=== PATIENT | female | born 1980 | race Caucasian/White ===

== ENCOUNTER 2017-07-14 08:40 | Emergency (ER) | payer SELFPAY ==
[2017-07-14] MEDS ORDERED: Haloperidol Lactate 5 mg/mL 1mL Vial IM STA (09:20)
[2017-07-14] MEDS ORDERED: Haloperidol Lactate 5 mg/mL 1mL Vial ONE (09:25)
[2017-07-14] MEDS ORDERED: Hydrocodone/APAP 10 mg/325 mg Tab PO STA (09:28)
[2017-07-14] MEDS ORDERED: Pantoprazole 40 mg EC Tab PO STA (09:34)
[2017-07-14] MEDS ORDERED: Hydrocodone/APAP 10 mg/325 mg Tab ONE (09:36)
[2017-07-14] MEDS ORDERED: Pantoprazole 40 mg EC Tab PO ONE (09:40)
[2017-07-14 09:52] LABS: % BASOPHILS 1.8 % (0.0-2.0); % EOSINOPHILS 5.2 % (0.0-5.0); % LYMPHOCYTES 29.4 % (20.0-50.0); % MONOCYTES 10.1 % (2.0-10.0); % NEUTROPHILS 53.5 % (40.0-80.0); BASOPHILE ABSOLUTE 0.1 Th/cumm (0-0.2); EOSINOPHILE ABSOLUTE 0.2 Th/cmm (0.1-0.4); HEMATOCRIT 38.4 % (41.0-60); LYMPHOCYTE ABSOLUTE 1.3 Th/cmm (1.5-3.0); MEAN CELL VOLUME 92.9 fl (81-100); MEAN CORPUSCULAR HEMOGLOBIN 31.6 pg (27.0-31.0); MEAN PLATELET VOLUME 6.6 fl; MONOCYTE ABSOLUTE 0.5 Th/cmm (0.3-1.0); NEUTROPHILE ABSOLUTE 2.4 Th/cmm (1.8-8.0); PLATELET COUNT 309 Th/cmm (150-400); RED BLOOD COUNT 4.13 Mil/cmm (3.80-5.10); RED CELL DISTRIBUTION WIDTH 12.3 % (11.5-20.0); WHITE BLOOD COUNT 4.5 Th/cmm (4.8-10.8)
[2017-07-14] MEDS ORDERED: Nicotine 21 mg/24 hr Tdm TD ONE (10:11)
[2017-07-14 10:22] LABS: URINE MICROSCOPIC INDICATED? YES; URINE SOURCE MIDSTREAM
[2017-07-14 10:26] LABS: URINE BILIRUBIN NEGATIVE (NEGATIVE); URINE BLOOD NEGATIVE (NEGATIVE); URINE GLUCOSE (UA) NEGATIVE (NEGATIVE); URINE KETONE NEGATIVE (NEGATIVE); URINE LEUKOCYTE ESTERASE NEGATIVE (NEGATIVE); URINE NITRATE NEGATIVE (NEGATIVE); URINE PROTEIN 30 mg/dL (NEGATIVE); URINE UROBILINOGEN 0.2 E.U./dL (0.2 - 1.0)
[2017-07-14 10:36] LABS: URINE CLARITY HAZY (CLEAR); URINE COLOR YELLOW
[2017-07-14 10:39] LABS: URINE BACTERIA 1+ /hpf (NONE SEEN); URINE EPITHELIAL CELLS FEW /lpf (FEW)
[2017-07-14 10:56] LABS: AMPHETAMINE URINE POSITIVE (NEGATIVE); BARBITURATES URINE NEGATIVE (NEGATIVE); BENZODIAZEPINES QUAL URINE POSITIVE (NEGATIVE); CANNABINOID THC POSITIVE (NEGATIVE); COCAINE METABOLITE QUAL URINE NEGATIVE (NEGATIVE); METHADONE URINE NEGATIVE (NEGATIVE); METHAMPHETAMINES QUAL URINE NEGATIVE (NEGATIVE); OPIATES (MORPHINE) QUAL. URINE NEGATIVE (NEGATIVE); PHENCYCLIDINE (PCP) URINE NEGATIVE (NEGATIVE); TRICYCLICS (TCA) QUAL. URINE NEGATIVE (NEGATIVE)
[2017-07-14 10:59] LABS: URINE RBC NONE SEEN /hpf (0-5)
--- NOTE | 2017-07-14 14:59 | Discharge Summary ---
DATE OF DISCHARGE: 07/14/2017 ADDENDUM: Addendum report and the final report on the patient. HISTORY OF PRESENT ILLNESS: A 36-year-old female patient. She was here because her back was hurting. She was given The Rock tablet and Haldol. She is a psychiatric patient. She has bipolar problem. She has had multiple abnormalities of multiple drug abuses of any and all kinds including heroin, methadone, cocaine and everything that you can think of she says she has done and today morning her father and she came here and I ordered the x-rays and everything. X-rays were not done because other things were going on. Lab was done, which showed lactic acid of 1.7. Urine was 1+ bacteria, epithelial cells are few, and protein is 30, but the test came out to be positive, so we got a serum test, which also came back to be positive. Her amylase level is within normal limits. The patient was given Haldol and The Rock and she was still living with pain and anxiety and having tantrums and problems and calling her uncle, Milan and she cannot be put on 5150 and by the time I went to talk to her along with the nurse, she just ran as fast as she can outside the door of the hospital and she eloped and went away and she went against medical advice, but she is aware that she is . She is aware that she has psychiatric problems and drug problems and she has bipolar disorder. She was taking at home the following medications, Topamax, ____, and other medications plus she smokes. So, she was advised before only to see her doctor in case if she goes home for psych condition as well as for positive . She eloped and walked against medical advice from the Emergency Room. JOB# [id number]
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
== END 2017-07-14 11:07 | disposition left against medical advice (07) ==
LOC: ER 08:40
DX: M54.5 Low back pain (principal); R50.9 Fever, unspecified; F41.9 Anxiety disorder, unspecified; F31.9 Bipolar disorder, unspecified; F32.9 Major depressive disorder, single episode, unspecified; F17.200 Nicotine dependence, unspecified, uncomplicated
CPT/HCPCS: 36415-UA; 80307; 80329-TC; 81001-TC; 81025-TC; 82150-TC; 83605; 83690-TC; 83735-TC; 84703-TC; 85025-TC; 87086-90; 93005; J1630; Z7610